=== PATIENT | male | born 1970 | race Caucasian/White ===

== ENCOUNTER 2019-11-13 02:52 | Emergency (ER) | payer BC ==
[~2019-11-13] VITALS: Ht 167.6 cm; Wt 115.7 kg
[~2019-11-13 02:52] MED LIST: NAPR500 PO; PENVK500 PO
[2019-11-13 03:20] LABS: BASOPHILS ABSOLUTE AUTO 0.04 K/mm3 (0.00-0.23); BASOPHILS PERCENT AUTO 1 % (0-2); EOSINOPHILS ABSOLUTE AUTO 0.18 K/mm3 (0.00-0.68); EOSINOPHILS PERCENT AUTO 2 % (0-6); Hematocrit 48.1 % (37.0-53.0); Hemoglobin 15.7 g/dL (13.5-17.5); IMMATURE GRAN ABSOLUTE AUTO 0.06 K/mm3 (0.00-0.10); IMMATURE GRAN PERCENT AUTO 1 % (0-1); LYMPHOCYTES ABSOLUTE AUTO 1.72 K/mm3 (0.84-5.20); LYMPHOCYTES PERCENT AUTO 22 % (21-46); MONOCYTES ABSOLUTE AUTO 1.03 K/mm3 (0.16-1.47); MONOCYTES PERCENT AUTO 13 % (4-13); Mean Corpuscular HGB 28.4 pg (26.0-34.0); Mean Corpuscular HGB Conc 32.6 g/dL (31.5-36.5); Mean Corpuscular Volume 87 fL (80-100); Mean Platelet Volume 10.5 fL (9.1-12.4); NEUTROPHILS ABSOLUTE AUTO 4.71 K/mm3 (1.96-9.15); NEUTROPHILS PERCENT AUTO 61 % (41-73); Platelet Count 208 K/mm3 (150-400); RDW Coefficient Variation 12.6 % (11.7-14.2); RDW Standard Deviation 40.6 fL (35.1-46.3); Red Blood Cell Count 5.52 M/mm3 (4.30-5.90); White Blood Cell Count 7.74 K/mm3 (4.00-11.30)
[2019-11-13 03:41] LABS: Alanine Aminotransfer (ALT/SGP 102 U/L (12-78); Albumin, Blood 3.8 g/dL (3.4-5.0); Alk Phos 114 U/L (50-136); Anion Gap 5 mmol/L (6-16); Aspartate Aminotrans (AST/SGOT 48 U/L (12-37); Bilirubin, Total 0.3 mg/dL (0.1-1.0); Blood Urea Nitrogen 15 mg/dL (8-24); CO2, Blood 26 mmol/L (21-32); Calcium, Blood 8.8 mg/dL (8.5-10.1); Chloride, Blood 106 mmol/L (98-108); Creatinine, Blood 0.94 mg/dL (0.60-1.20); Globulin, Blood 3.9 g/dL (2.2-4.0); Glomerular Filtration Rate >60 (60-); Glucose, Blood 115 mg/dL (70-99); Potassium, Blood 3.9 mmol/L (3.5-5.5); Sodium, Blood 137 mmol/L (136-145); Total Protein, Blood 7.7 g/dL (6.4-8.2); Troponin I <0.015 ng/mL (0.000-0.040)
== END 2019-11-13 04:10 | disposition home or self-care (01) ==
LOC: ER 02:52
PROVIDERS: Emergency Medicine
DX: J06.9 Acute upper respiratory infection, unspecified (principal); Z88.7 Allergy status to serum and vaccine; Z79.899 Other long term (current) drug therapy
CPT/HCPCS: 36415; 71046; 80053; 83880; 84484; 85025; 93005; 93010; 94640; 96361; 96374; 99284-25; J2930; J7030

== ENCOUNTER → 2020-01-20 | Outpatient (CLI) | payer BC | END | disposition home or self-care (01) | LOC: LAB EV 08:31 → LAB SHORT 08:31 | DX: J06.9 Acute upper respiratory infection, unspecified (principal); Z20.828 Contact with and (suspected) exposure to other viral communicable diseases | CPT/HCPCS: U0003 ==

== ENCOUNTER → 2020-07-02 | Outpatient (CLI) | payer OTHER ==
[2020-07-02 09:37] LABS: BASOPHILS ABSOLUTE AUTO 0.06 K/mm3 (0.00-0.23); BASOPHILS PERCENT AUTO 1 % (0-2); EOSINOPHILS PERCENT AUTO 1 % (0-6); Hematocrit 46.9 % (37.0-53.0); Hemoglobin 15.8 g/dL (13.5-17.5); IMMATURE GRAN ABSOLUTE AUTO 0.13 K/mm3 (0.00-0.10); IMMATURE GRAN PERCENT AUTO 1 % (0-1); LYMPHOCYTES ABSOLUTE AUTO 2.08 K/mm3 (0.84-5.20); LYMPHOCYTES PERCENT AUTO 22 % (21-46); MONOCYTES ABSOLUTE AUTO 0.69 K/mm3 (0.16-1.47); MONOCYTES PERCENT AUTO 7 % (4-13); Mean Corpuscular HGB 28.9 pg (26.0-34.0); Mean Corpuscular HGB Conc 33.7 g/dL (31.5-36.5); Mean Corpuscular Volume 86 fL (80-100); Mean Platelet Volume 10.7 fL (9.1-12.4); NEUTROPHILS ABSOLUTE AUTO 6.42 K/mm3 (1.96-9.15); NEUTROPHILS PERCENT AUTO 68 % (41-73); Platelet Count 295 K/mm3 (150-400); RDW Coefficient Variation 12.8 % (11.7-14.2); RDW Standard Deviation 39.3 fL (35.1-46.3); Red Blood Cell Count 5.46 M/mm3 (4.30-5.90); White Blood Cell Count 9.48 K/mm3 (4.00-11.30)
[2020-07-02 09:45] LABS: Alanine Aminotransfer (ALT/SGP 104 U/L (12-78); Albumin, Blood 3.8 g/dL (3.4-5.0); Alk Phos 102 U/L (40-126); Anion Gap 9 mmol/L (6-16); Aspartate Aminotrans (AST/SGOT 36 U/L (12-37); Bilirubin, Total 0.5 mg/dL (0.1-1.0); Blood Urea Nitrogen 17 mg/dL (8-24); Bun/Creatinine Ratio 16.7 (12.0-20.0); CO2, Blood 26 mmol/L (21-32); Calcium, Blood 9.4 mg/dL (8.5-10.1); Chloride, Blood 101 mmol/L (98-108); Creatinine, Blood 1.02 mg/dL (0.60-1.20); Glomerular Filtration Rate >60 (60-); Glucose, Blood 138 mg/dL (70-99); Potassium, Blood 4.4 mmol/L (3.5-5.5); Sodium, Blood 136 mmol/L (136-145); Total Protein, Blood 7.8 g/dL (6.4-8.2)
== END | disposition home or self-care (01) ==
LOC: LAB EV 09:31 → LAB SHORT 09:31
PROVIDERS: Family Medicine
DX: R10.11 Right upper quadrant pain (principal)
CPT/HCPCS: 80053; 85025

== ENCOUNTER 2020-10-29 08:16 | Day surgery (SDC) | payer OTHER ==
[~2020-10-29] VITALS: Ht 167.6 cm; Wt 113.2 kg
[~2020-10-29 08:16] MED LIST changes: +ATOR20 PO; +ERGO50000 PO; +LISI20 PO; +MELO7.5 PO; +TRANSDERM-SCOP1 EAC1; +Triamcinolone A15 G4; +VITAMIN D325 MC3 PO; +Viagra100 MG
[2020-10-29] MEDS ORDERED: METF500 (08:45)
== END 2020-10-29 10:38 | disposition home or self-care (01) ==
LOC: ORSCSDS 08:16
PROVIDERS: Student in an Organized Health Care Education/Training Program
PROC: 0DBP8ZX Excision of Rectum, Via Natural or Artificial Opening Endoscopic, Diagnostic (ICD-10-PCS; principal; 2020-10-29 09:30)
PROC: 0DBH8ZX Excision of Cecum, Via Natural or Artificial Opening Endoscopic, Diagnostic (ICD-10-PCS; principal; 2020-10-29 09:30)
PROC: 0DBM8ZX Excision of Descending Colon, Via Natural or Artificial Opening Endoscopic, Diagnostic (ICD-10-PCS; principal; 2020-10-29 09:30)
PROC: 0DBN8ZX Excision of Sigmoid Colon, Via Natural or Artificial Opening Endoscopic, Diagnostic (ICD-10-PCS; principal; 2020-10-29 09:30)
DX: Z80.0 Family history of malignant neoplasm of digestive organs (principal); D12.0 Benign neoplasm of cecum; D12.4 Benign neoplasm of descending colon; D12.5 Benign neoplasm of sigmoid colon; K62.1 Rectal polyp; K57.30 Diverticulosis of large intestine without perforation or abscess without bleeding; K64.8 Other hemorrhoids; E11.9 Type 2 diabetes mellitus without complications; I10 Essential (primary) hypertension; E78.5 Hyperlipidemia, unspecified; K76.0 Fatty (change of) liver, not elsewhere classified; Z79.84 Long term (current) use of oral hypoglycemic drugs; Z79.899 Other long term (current) drug therapy
CPT/HCPCS: 82947; 88305; J2704; J7120

== ENCOUNTER 2021-02-09 09:40 | Emergency (ER) | payer OTHER ==
[~2021-02-09] VITALS: Ht 167.6 cm; Wt 114.8 kg
[~2021-02-09 09:40] MED LIST changes: +METF500
[2021-02-09 10:33] LABS: BASOPHILS ABSOLUTE AUTO 0.07 K/mm3 (0.00-0.23); BASOPHILS PERCENT AUTO 1 % (0-2); EOSINOPHILS ABSOLUTE AUTO 0.11 K/mm3 (0.00-0.68); EOSINOPHILS PERCENT AUTO 1 % (0-6); Hematocrit 47.5 % (37.0-53.0); Hemoglobin 15.5 g/dL (13.5-17.5); IMMATURE GRAN ABSOLUTE AUTO 0.07 K/mm3 (0.00-0.10); IMMATURE GRAN PERCENT AUTO 1 % (0-1); LYMPHOCYTES ABSOLUTE AUTO 2.26 K/mm3 (0.84-5.20); LYMPHOCYTES PERCENT AUTO 24 % (21-46); MONOCYTES ABSOLUTE AUTO 0.74 K/mm3 (0.16-1.47); MONOCYTES PERCENT AUTO 8 % (4-13); Mean Corpuscular HGB 28.7 pg (26.0-34.0); Mean Corpuscular HGB Conc 32.6 g/dL (31.5-36.5); Mean Corpuscular Volume 88 fL (80-100); Mean Platelet Volume 10.4 fL (9.1-12.4); NEUTROPHILS ABSOLUTE AUTO 6.04 K/mm3 (1.96-9.15); NEUTROPHILS PERCENT AUTO 65 % (41-73); Platelet Count 278 K/mm3 (150-400); RDW Coefficient Variation 12.8 % (11.7-14.2); RDW Standard Deviation 41.1 fL (35.1-46.3); White Blood Cell Count 9.29 K/mm3 (4.00-11.30)
[2021-02-09 10:45] LABS: Anion Gap 6 mmol/L (6-16); Blood Urea Nitrogen 19 mg/dL (8-24); Bun/Creatinine Ratio 20.7 (12.0-20.0); CO2, Blood 25 mmol/L (21-32); Chloride, Blood 103 mmol/L (98-108); Creatinine, Blood 0.92 mg/dL (0.60-1.20); Glomerular Filtration Rate >60 (60-); Glucose, Blood 107 mg/dL (70-99); Sodium, Blood 134 mmol/L (136-145)
[2021-02-09] MEDS ORDERED: DOCU100 PO (11:05)
== END 2021-02-09 11:22 | disposition home or self-care (01) ==
LOC: ER 09:40
PROVIDERS: Emergency Medicine
DX: K62.5 Hemorrhage of anus and rectum (principal); Z79.899 Other long term (current) drug therapy; Z79.84 Long term (current) use of oral hypoglycemic drugs
CPT/HCPCS: 36415; 80048; 85025; 99283

== ENCOUNTER 2021-12-20 10:02 | Day surgery (SDC) | payer OTHER ==
[~2021-12-20] VITALS: Ht 167.6 cm; Wt 112.1 kg
[~2021-12-20 10:02] MED LIST changes: +DOCU100 PO
--- NOTE | 2021-12-20 10:44 | NUR ---
12/20/21 Sally Reynolds TRY RIGHTHAND BLEW.
--- NOTE | 2021-12-20 11:46 | NUR ---
12/20/21 1146 RADHA FRANKLIN FLFatou TRANSFER OF PT CARE AT 1145 TO [facility].
== END 2021-12-20 12:51 | disposition home or self-care (01) ==
LOC: ORSCSDS 10:02
PROVIDERS: Student in an Organized Health Care Education/Training Program
PROC: 0DBK8ZX Excision of Ascending Colon, Via Natural or Artificial Opening Endoscopic, Diagnostic (ICD-10-PCS; principal; 2021-12-20 11:15)
PROC: 0DBN8ZX Excision of Sigmoid Colon, Via Natural or Artificial Opening Endoscopic, Diagnostic (ICD-10-PCS; principal; 2021-12-20 11:15)
PROC: 0DBM8ZX Excision of Descending Colon, Via Natural or Artificial Opening Endoscopic, Diagnostic (ICD-10-PCS; principal; 2021-12-20 11:15)
DX: Z12.11 Encounter for screening for malignant neoplasm of colon (principal); Z86.010 Personal history of colon polyps; Z80.0 Family history of malignant neoplasm of digestive organs; K63.5 Polyp of colon; K57.30 Diverticulosis of large intestine without perforation or abscess without bleeding; K76.0 Fatty (change of) liver, not elsewhere classified; E11.9 Type 2 diabetes mellitus without complications; I10 Essential (primary) hypertension; E78.5 Hyperlipidemia, unspecified; Z79.84 Long term (current) use of oral hypoglycemic drugs; Z79.899 Other long term (current) drug therapy; E66.9 Obesity, unspecified; Z68.39 Body mass index [BMI] 39.0-39.9, adult
CPT/HCPCS: 82947; 88305; J2370; J2704; J7120

== ENCOUNTER 2023-05-09 06:31 | Day surgery (SDC) | payer OTHER ==
[~2023-05-09] VITALS: Ht 167.6 cm; Wt 113.7 kg
[2023-05-09] VITALS (18 sets, daily range): BP systolic 77–136; BP diastolic 35–89
[~2023-05-09 06:31] MED LIST changes: +ACET500 PO; +IBUP800 PO; -METF500; +METF500 PO; +OXYCODONE PO; +TURMERIC500 M2 PO
--- NOTE | 2023-05-09 07:49 | NUR ---
INTO [facility] VIA W/C. PT UNABLE TO BEAR WT ON RIGHT LEG. AMBULATES W/ CRUTCHES AT HOME. ABLE TO USE WALKER IN DEPT AND GO TO BR. Pre-Op teaching done. Pt verbalizes understanding. History, Chart, Medications and Allergies reviewed before start of procedure.Patient confirms NPO status and agrees with scheduled surgery.
[2023-05-09] MEDS ORDERED: DOCUSATE (08:07)
[2023-05-09] MEDS ORDERED: SENNA (08:07)
--- NOTE | 2023-05-09 08:10 | NUR ---
PT C/O SOB WHEN LAYING FLAT, PT REPORTS HE'S VERY UNCOMFORTABLE IN THIS BED AND [address] W/ NSR AND OCCASIONAL PVC. SEE VSS. PT STATES HE IS FEELING VERY ANXIOUS WELL.
--- NOTE | 2023-05-09 08:14 | NUR ---
PT TURNED ONTO LEFT SIDE AND REPOSITIONED FOR COMFORT SOB NO GONE. NSR CONTINUES.
--- NOTE | 2023-05-09 12:19 | NUR ---
DR ENG STATES TO HAVE MAP GREATER THAN 60 OR CLOSE TO IT AND IT HAS BEEN
--- NOTE | 2023-05-09 15:51 | NUR ---
"Spiritual Care Visit | Pt. request Pt. is sitting up in his recliner and welcomes my visit. Pt. is pleasant. Pt. verbalizes that he is post surgery and that he is tracking to go home for recovery soon. Facilitate a life review and consider matters of maverick and belief. Pts. SO and son arrive. pt. displays evidence of hope and commitment to do the things he needs to do inorder to fully recover. Prayed with with family. Pt. and SO both verbalize gratitude for the spiritual care visit."
--- NOTE | 2023-05-09 18:00 | NUR ---
SHIFT SUMMARY NEW ADMIT TO UNIT POD [address] WINN. ALERT, ORIENTED, PLEASANT, AND COOPERATIVE. SBA TO AMBULATE IN ROOM WITH GB AND FWW. WORKED WITH PHYSICAL THERAPY. ROOM AIR, DENIES CHEST PAIN AND SOB. POST OP VSS. TOLERATING REGULAR DIET AND LIQUIDS. PRE DM, ACHS DINNER CHEM BG 151, PATIENT REFUSED INSULIN COVERAGE. SALINE LOCKED. VOIDING WELL. R HIP WITH AQUACEL AND POLAR PACK IN PLACE. PAIN CONTROLLED WITH PAIN MEDS PER EMAR. RESTING IN RECLINER AT THIS TIME. FAMILY MEMBERS ATTENTIVE AT BEDSIDE. PLAN TO DISCHARGE HOME 05/10/23 AFTER PHYSICAL THERAPY SESSION.
[2023-05-10 01:52] VITALS: BP 96/61
[2023-05-10 04:25] LABS: BASOPHILS ABSOLUTE AUTO 0.03 K/mm3 (0.00-0.23); BASOPHILS PERCENT AUTO 0 % (0-2); EOSINOPHILS ABSOLUTE AUTO 0.01 K/mm3 (0.00-0.68); EOSINOPHILS PERCENT AUTO 0 % (0-6); Hematocrit 34.5 % (37.0-53.0); Hemoglobin 11.4 g/dL (13.5-17.5); IMMATURE GRAN PERCENT AUTO 1 % (0-1); LYMPHOCYTES ABSOLUTE AUTO 1.63 K/mm3 (0.84-5.20); LYMPHOCYTES PERCENT AUTO 11 % (21-46); MONOCYTES ABSOLUTE AUTO 1.53 K/mm3 (0.16-1.47); MONOCYTES PERCENT AUTO 10 % (4-13); Mean Corpuscular HGB 28.9 pg (26.0-34.0); Mean Corpuscular Volume 87 fL (80-100); Mean Platelet Volume 10.2 fL (9.1-12.4); NEUTROPHILS ABSOLUTE AUTO 11.45 K/mm3 (1.96-9.15); NEUTROPHILS PERCENT AUTO 77 % (41-73); Platelet Count 267 K/mm3 (150-400); RDW Coefficient Variation 12.3 % (11.7-14.2); RDW Standard Deviation 39.8 fL (35.1-46.3); Red Blood Cell Count 3.95 M/mm3 (4.30-5.90); White Blood Cell Count 14.85 K/mm3 (4.00-11.30)
--- NOTE | 2023-05-10 05:08 | NUR ---
SHIFT SUMMARY PT POD 0 R TOTAL HIP, PT HAS RESTED OFF AND ON T/O THE NIGHT. HE HAS BEEN PAINFUL. MEDICATED WITH MEDS PER EMAR PRN. DRESSING INTACT TO RIGHT HIP. PT HAS BEEN UP AND AMBULATING WITH FWW AND MINIMAL ASSISTANCE. TOLERATING PO INTAKE. DENIES N/T IN EXT AND IS ABLE TO WIGGLE TOES. POST OP VITALS ARE STABLE. POST OP ANTIBIOTICS INFUSED. PLAN IS FOR DISCHARGE TODAY. BED IN LOWEST POSITION, CALL LIGHT WITHIN REACH.
[2023-05-10 05:10] LABS: Bun/Creatinine Ratio 30.1 (12.0-20.0); Calcium, Blood 8.5 mg/dL (8.5-10.1); Creatinine, Blood 0.93 mg/dL (0.60-1.20); Potassium, Blood 4.2 mmol/L (3.5-5.5)
[2023-05-10 05:51] VITALS: BP 106/72
[2023-05-10] MEDS ORDERED: ASPI81CH PO (07:38)
[2023-05-10] MEDS ORDERED: Percocet 5-3251 EACH PO (07:38)
[2023-05-10 07:44] VITALS: BP 96/53
--- NOTE | 2023-05-10 12:16 | NUR ---
DISCHARGE SUMMARY ALERT, ORIENTED, PLEASANT, AND COOPERATIVE. TOLERATING REGULAR DIET AND LIQUIDS. VOIDING WELL. ROOM AIR. VSS. AMBULATING IN NG WITH FWW AND GB. CLEARED FOR DISCHARGE BY PT. JAEL TO RIGHT HIP C/D/I. PAIN CONTROLLED WITH PRN PAIN MEDS. SEEN BY TONYA RAPP THIS AM. DISCHARGE EDUCATION GIVEN ON NEW MEDS, INCISION CARE, ACTIVITY, AND FOLLOW UP WITH PT AND ORTHO. IV DC'D WNL. PATIENT LEFT UNIT AT 1210 VIA WHEELCHAIR FOR HOME.
== END 2023-05-10 11:59 | disposition home or self-care (01) ==
LOC: ORSCMMR 06:31 → ORD 07:30 → ORSCMMR 08:15 → ORD 08:15 → SURS 12:53 → ORSCMMR 12:53 → SURS 05-10 11:59 → ORD 06-13 07:30
PROVIDERS: Orthopaedic Surgery
PROC: 0SR90JZ Replacement of Right Hip Joint with Synthetic Substitute, Open Approach (ICD-10-PCS; principal; 2023-05-09 08:15)
DX: M16.11 Unilateral primary osteoarthritis, right hip (principal); E78.5 Hyperlipidemia, unspecified; I10 Essential (primary) hypertension; E11.9 Type 2 diabetes mellitus without complications; E66.01 Morbid (severe) obesity due to excess calories; Z68.41 Body mass index [BMI] 40.0-44.9, adult; Z79.899 Other long term (current) drug therapy; J44.9 Chronic obstructive pulmonary disease, unspecified; Z79.84 Long term (current) use of oral hypoglycemic drugs; M87.9 Osteonecrosis, unspecified
CPT/HCPCS: 36415; 72170; 80048; 82947; 85025; 88305; 88311; 97110; 97116; 97162; A9270; C1776; J0171; J0690; J0735; J1100; J1170; J1885; J2250; J2371; J2405; J2704; J2795; J3010; J7050; J7120

== ENCOUNTER → 2023-07-18 | Outpatient (CLI) | payer OTHER ==
[~2023-07-18] MED LIST changes: +ASPI81CH PO; +DOCUSATE; +Percocet 5-3251 EACH PO; +SENNA
[2023-07-18 09:40] LABS: BASOPHILS ABSOLUTE AUTO 0.07 K/mm3 (0.00-0.23); BASOPHILS PERCENT AUTO 1 % (0-2); EOSINOPHILS ABSOLUTE AUTO 0.18 K/mm3 (0.00-0.68); EOSINOPHILS PERCENT AUTO 2 % (0-6); Hematocrit 43.8 % (37.0-53.0); Hemoglobin 14.5 g/dL (13.5-17.5); IMMATURE GRAN PERCENT AUTO 1 % (0-1); LYMPHOCYTES ABSOLUTE AUTO 2.27 K/mm3 (0.84-5.20); LYMPHOCYTES PERCENT AUTO 26 % (21-46); MONOCYTES ABSOLUTE AUTO 0.83 K/mm3 (0.16-1.47); MONOCYTES PERCENT AUTO 10 % (4-13); Mean Corpuscular HGB 28.3 pg (26.0-34.0); Mean Corpuscular HGB Conc 33.1 g/dL (31.5-36.5); Mean Corpuscular Volume 85 fL (80-100); Mean Platelet Volume 10.3 fL (9.1-12.4); NEUTROPHILS ABSOLUTE AUTO 5.33 K/mm3 (1.96-9.15); NEUTROPHILS PERCENT AUTO 61 % (41-73); Platelet Count 256 K/mm3 (150-400); RDW Standard Deviation 40.4 fL (35.1-46.3); Red Blood Cell Count 5.13 M/mm3 (4.30-5.90); White Blood Cell Count 8.78 K/mm3 (4.00-11.30)
[2023-07-18 10:14] LABS: Albumin, Blood 3.8 g/dL (3.4-5.0); Albumin/Globulin Ratio 1.1 (0.8-1.8); Bilirubin, Total 0.2 mg/dL (0.1-1.0); Bun/Creatinine Ratio 22.2 (12.0-20.0); Calcium, Blood 9.2 mg/dL (8.5-10.1); Creatinine, Blood 0.77 mg/dL (0.60-1.20); Globulin, Blood 3.6 g/dL (2.2-4.0); Potassium, Blood 4.4 mmol/L (3.5-5.5); Thyroid Stimulating Hormone 1.66 uIU/mL (0.360-4.800); Total Protein, Blood 7.4 g/dL (6.4-8.2)
== END | disposition home or self-care (01) ==
LOC: LAB 09:22 → LAB SHORT 09:22
PROVIDERS: Chiropractor
DX: R07.9 Chest pain, unspecified (principal); R53.83 Other fatigue
CPT/HCPCS: 80053; 83880; 84443; 84484; 85025; 85379

== ENCOUNTER 2023-07-26 18:48 | Emergency (ER) | payer OTHER ==
[~2023-07-26] VITALS: Ht 167.6 cm; Wt 117.9 kg
[2023-07-26 18:55] VITALS: BP 165/94
== END 2023-07-26 20:30 | disposition home or self-care (01) ==
LOC: ER 18:48
DX: M79.605 Pain in left leg (principal); M25.562 Pain in left knee; I10 Essential (primary) hypertension; Z79.82 Long term (current) use of aspirin; Z79.899 Other long term (current) drug therapy; Z96.641 Presence of right artificial hip joint; Z88.7 Allergy status to serum and vaccine; Z88.5 Allergy status to narcotic agent
CPT/HCPCS: 93971; 96372; 99283-25; J1885

== ENCOUNTER → 2025-01-29 | Outpatient (CLI) | payer BC, OTHER ==
[2025-01-29 15:59] LABS: BASOPHILS ABSOLUTE AUTO 0.05 K/mm3 (0.00-0.23); BASOPHILS PERCENT AUTO 1 % (0-2); EOSINOPHILS ABSOLUTE AUTO 0.11 K/mm3 (0.00-0.68); EOSINOPHILS PERCENT AUTO 1 % (0-6); Hematocrit 46.5 % (37.0-53.0); Hemoglobin 15.4 g/dL (13.5-17.5); IMMATURE GRAN ABSOLUTE AUTO 0.12 K/mm3 (0.00-0.10); IMMATURE GRAN PERCENT AUTO 1 % (0-1); LYMPHOCYTES ABSOLUTE AUTO 2.04 K/mm3 (0.84-5.20); LYMPHOCYTES PERCENT AUTO 22 % (21-46); MONOCYTES ABSOLUTE AUTO 0.75 K/mm3 (0.16-1.47); MONOCYTES PERCENT AUTO 8 % (4-13); Mean Corpuscular HGB 28.3 pg (26.0-34.0); Mean Corpuscular HGB Conc 33.1 g/dL (31.5-36.5); Mean Corpuscular Volume 86 fL (80-100); Mean Platelet Volume 10.6 fL (9.1-12.4); NEUTROPHILS PERCENT AUTO 67 % (41-73); Platelet Count 257 K/mm3 (150-400); RDW Coefficient Variation 13.1 % (11.7-14.2); RDW Standard Deviation 40.2 fL (35.1-46.3); Red Blood Cell Count 5.44 M/mm3 (4.30-5.90); White Blood Cell Count 9.27 K/mm3 (4.00-11.30)
[2025-01-29 16:15] LABS: Albumin, Blood 3.9 g/dL (3.4-5.0); Albumin/Globulin Ratio 1.1 (0.8-1.8); Bilirubin, Total 0.4 mg/dL (0.1-1.0); Bun/Creatinine Ratio 20.6 (12.0-20.0); Calcium, Blood 9.5 mg/dL (8.5-10.1); Creatinine, Blood 1.26 mg/dL (0.60-1.20); Globulin, Blood 3.6 g/dL (2.2-4.0); Potassium, Blood 4.1 mmol/L (3.5-5.5); Total Protein, Blood 7.5 g/dL (6.4-8.2)
[2025-01-31 11:10] LABS: HEPATITIS A ANTIBODY, IGM Negative (Negative); HEPATITIS B CORE ANTIBODY, IGM Negative (Negative); HEPATITIS B SURFACE ANTIGEN Negative (Negative); HEPATITIS C AB CIA INTERP Negative (Negative); HEPATITIS C ANTIBODY CIA INDEX 0.05 IV
== END ==
LOC: LAB SHORT 15:54 → LAB 15:54
PROVIDERS: Physician Assistant
DX: R07.9 Chest pain, unspecified (principal); R79.89 Other specified abnormal findings of blood chemistry
CPT/HCPCS: 80053; 80074; 83690; 84484; 85025